=== PATIENT | female | born 1990 | race Caucasian/White ===

== ENCOUNTER 2018-01-04 23:43 | Emergency (ER) | payer SELFPAY ==
[~2018-01-04] VITALS: Ht 170.2 cm; Wt 77.3 kg
[~2018-01-04 23:43] MED LIST: PHEN1PAC8 PO
[2018-01-04] MEDS ORDERED: HYDR-309 PO (23:50)
[2018-01-05 00:56] VITALS: BP 130/78
== END 2018-01-05 01:02 | disposition home or self-care (01) ==
LOC: EMS 23:43
DX: S62.304D Unspecified fracture of fourth metacarpal bone, right hand, subsequent encounter for fracture with routine healing (principal); V89.2XXD Person injured in unspecified motor-vehicle accident, traffic, subsequent encounter
CPT/HCPCS: 99281; 99283